=== PATIENT | female | born 1945 | race Caucasian/White ===

== ENCOUNTER → 2017-11-01 | Outpatient (REF) | payer MEDICARE, OTHER ==
[2017-11-01 14:15] LABS: FOLATE > 24.0 NG/ML; VITAMIN B12 LEVEL 708 PG/ML
[2017-11-05 00:08] LABS: VITAMIN B1 LEVEL WHOLE BLOOD 179.4 nmol/L (66.5-200.0); VITAMIN B6,PYRIDOXAL PHOSPHATE 13.8 ug/L (2.0-32.8); VITAMIN E(ALPHA TOCOPHEROL) 11.4 mg/L (9.0-29.0); VITAMIN E(GAMMA TOCOPHEROL) 0.4 mg/L (0.5-4.9)
== END ==
LOC: M LABNEURO 09:12
DX: E03.9 Hypothyroidism, unspecified (principal); E53.8 Deficiency of other specified B group vitamins
CPT/HCPCS: 82746

== ENCOUNTER → 2018-01-02 | Outpatient (REF) | payer MEDICARE, OTHER ==
[2018-01-02 12:52] LABS: BASO % 0.2 % (0.0-1.0); EOS # 0.1 10^3/uL (0.0-0.50); EOS % 0.5 % (0.0-3.0); HEMATOCRIT 36.3 % (36.0-47.0); HEMOGLOBIN 11.9 g/dl (12.0-15.5); IMMATURE GRANULOCYTE % 0.4 % (0-3.0); LYMPH # 1.1 10^3/uL (1.5-4.5); LYMPH % 11.3 % (24.0-44.0); MEAN CORPUSCULAR HEMOGLOBIN 28.3 pg (27.0-33.0); MEAN CORPUSCULAR HGB CONC 32.8 g/dl (32.0-36.5); MEAN CORPUSCULAR VOLUME 86.2 fl (80.0-96.0); MONO % 10.8 % (0.0-5.0); NEUTROPHILS # 7.4 10^3/uL (1.8-7.7); NEUTROPHILS % 76.8 % (36.0-66.0); PLATELET COUNT, AUTOMATED 402 10^3/uL (150-450); RED BLOOD COUNT 4.21 10^6/uL (4.00-5.40); WHITE BLOOD COUNT 9.6 10^3/uL (4.0-10.0)
[2018-01-02 13:28] LABS: ANION GAP 9 MEQ/L (8-16); BLOOD UREA NITROGEN 7 MG/DL (7-18); CALCIUM LEVEL 8.6 MG/DL (8.8-10.2); CARBON DIOXIDE LEVEL 26 MEQ/L (21-32); CHLORIDE LEVEL 104 MEQ/L (98-107); CREATININE FOR GFR 0.37 MG/DL (0.55-1.30); GLOMERULAR FILTRATION RATE > 60.0 (>39); GLUCOSE, FASTING 85 MG/DL (70-100); POTASSIUM SERUM 3.9 MEQ/L (3.5-5.1); SODIUM LEVEL 139 MEQ/L (136-145)
== END ==
LOC: M LABDRAW1 09:31
DX: F03.90 Unspecified dementia, unspecified severity, without behavioral disturbance, psychotic disturbance, mood disturbance, and anxiety (principal)
CPT/HCPCS: 84443

== ENCOUNTER 2018-12-14 08:08 | Day surgery (SDC) | payer MEDICARE, OTHER ==
[~2018-12-14] VITALS: Ht 165.1 cm; Wt 51.3 kg
[~2018-12-14 08:08] MED LIST: ALEN70TA74 PO; CALC600T5 PO; COQ-100C5 PO; DONE10TA90 PO; FISH1000 PO; MEMA1TAB2 PO; MULTCAP PO; VITAE20CA PO; eye vitamin PO
[2018-12-14] MEDS ORDERED: NS 1,000 ML IV ONE (09:00)
[2018-12-14] MEDS ORDERED: PROPOFOL 200 MG/20 ML VIAL As Ordered ONE (09:05)
[2018-12-14] MEDS ORDERED: LIDOCAINE 2% INJ 100 MG/5 ML SDV (FOR ANES.) As Ordered ONE (09:05)
--- NOTE | 2018-12-14 10:37 | ROOR ---
Patient Name: Claudia Reeves Procedure Date: 12/14/2018 10:12 AM Date of : 1945 Age: 73 Room: [facility] Gender: Female Note Status: Finalized Procedure: Colonoscopy Indications: Screening for colorectal malignant neoplasm Providers: Devaughn BOOTH MD Referring MD: Radha Mcclain MD Requesting Provider: Medicines: Monitored Anesthesia Care Complications: No immediate complications. Procedure: Pre-Anesthesia Assessment: - The heart rate, respiratory rate, oxygen saturations, blood pressure, adequacy of pulmonary ventilation, and response to care were monitored throughout the procedure. The Colonoscope was introduced through the anus and advanced to the terminal ileum, with identification of the appendiceal orifice and IC valve. The colonoscopy was performed without difficulty. The patient tolerated the procedure well. The quality of the bowel preparation was good. Findings: The perianal and digital rectal examinations were normal. The mucosa vascular pattern in the entire colon was diffusely decreased. This was biopsied with a cold forceps for diagnostic purposes. Two sessile polyps were found in the sigmoid colon. The polyps were diminutive in size. These polyps were removed with a cold snare. Resection and retrieval were complete. Multiple medium-mouthed diverticula were found in the sigmoid colon. The exam was otherwise without abnormality on direct and retroflexion views. Impression: - Two diminutive polyps in the sigmoid colon, removed with a cold snare. Resected and retrieved. - Mild diverticulosis in the sigmoid colon. - Decreased mucosa vascular pattern in the entire colon. Biopsied. - The examination was otherwise normal on direct and retroflexion views. Recommendation: - Telephone endoscopist for pathology results in 2 weeks. - If the pathology report reveals adenomatous tissue, then repeat the colonoscopy for surveillance in 5 years. Devaughn Booth MD Devaughn BOOTH MD 12/14/2018 10:37:25 AM Electronically signed by Devaughn BOOTH MD Number of Addenda: 0 Note Initiated On: 12/14/2018 10:12 AM Estimated Blood Loss: Estimated blood loss: none.
[2018-12-14 11:15] VITALS: BP 122/65
== END 2018-12-14 11:35 | disposition home or self-care (01) ==
LOC: M OPP 08:08
PROVIDERS: ATTEND Internal Medicine Gastroenterology
DX: Z12.11 Encounter for screening for malignant neoplasm of colon (principal); K63.5 Polyp of colon; K57.30 Diverticulosis of large intestine without perforation or abscess without bleeding

== ENCOUNTER → 2020-07-01 | Outpatient (CLI) | payer MEDICARE, OTHER ==
[~2020-07-01] MED LIST changes: -ALEN70TA74 PO; +ALEN70TA82 PO; -CALC600T5 PO; +CALC600T61 PO; +MEMA10TA19 PO; -MEMA1TAB2 PO
--- NOTE | 2020-07-01 15:21 | REPMRS ---
Patient History The patient states she has not had a clinical breast exam in over a year. Patient is postmenopausal. Family history of endometrial cancer at age 50 or over in sister. Digital Woman Screen Mammo: July 01, 2020 - Exam #: [id number] Bilateral CC and MLO view(s) were taken. Technologist: Anneliese Parish, Technologist Prior study comparison: May 17, 2019, bilateral digital mammo screening bilat, performed at [facility]. January 24, 2018, bilateral digital mammo screening bilat, performed at [facility]. September 24, 2015, bilateral digital mammo screening bilat, performed at [facility]. FINDINGS: The breast tissue is extremely dense which could obscure a lesion on mammography. The [facility] volumetric breast density category is: D. There is a needle biopsy marker clip in the right breast. There is an extremely dense symmetrical pattern of residual fibroglandular tissue. There has been no change in the appearance of the mammogram from the previous studies. There is no interval development of dominant mass, archetectural distortion, or grouped microcalcifications suggestive of malignancy. Assessment: BI-RADS/ACR category 2 mammogram. Benign Findings. Recommendation Routine screening mammogram of both breasts in 1 year (for women over age 40). This patient's [facility] Lifetime Breast Cancer RIsk is estimated at 3.8 %. This mammogram was interpreted with the aid of an FDA-approved computer-aided dectection system. Electronically Signed By: Tye Sanchez MD 07/01/20 [id number]
--- NOTE | 2020-07-01 15:31 | DEXAMM ---
INDICATION: M89.9 DISORDER OF BONE. COMPARISON: Comparison studies January 26, 2008 and January 24, 2018.. TECHNIQUE: Bone density was measured using dual-energy x-ray absorptionmetry (DEXA). FINDINGS: AP SPINE L1-L4 BMD 0.911 g/cm2 Young Adult T-Score -2.3 Age Matched Z-Score -0.5. LT FEMUR, TOTAL BMD 0.636 g/cm2 Young Adult T-Score -3.0 Age Matched Z-Score -1.2. LT NECK BMD 0.669 g/cm2 Young Adult T-Score -2.7 Age Matched Z-Score -0.7. RT FEMUR, TOTAL BMD 0.700 g/cm2 Young Adult T-Score -2.4 Age Matched Z-Score -0.7. RT NECK BMD 0.705 g/cm2 Young Adult T-Score -2.4 Age Matched Z-Score -0.5. IMPRESSION: There is low bone density of the spine. There is osteoporosis of the left hip. There is low bone density of the right hip. The density of the spine has decreased 6.1% since the initial exam on January 26, 2008. The density of the spine decreased 4.5% since most recent exam on January 24, 2018. The density of the left hip has decreased 24.6% since initial exam on January 26, 2008. The density of the left hip has decreased 8.5% since most recent exam on the January 24, 2018. The density of the right hip has decreased 17.1% since the initial exam on January 26, 2008. The density of the right hip has decreased 6.2% since the most recent exam on January 24, 2018. FOLLOW-UP: Recommendation for the next bone density exam: 2 years. <Electronically signed by Tye Sanchez > 07/01/20 [id number]
== END ==
LOC: M WHC 11:22
PROVIDERS: ATTEND Family Medicine
DX: Z12.31 Encounter for screening mammogram for malignant neoplasm of breast (principal); M89.9 Disorder of bone, unspecified

== ENCOUNTER → 2020-10-15 | Outpatient (CLI) | payer MEDICARE, OTHER ==
--- NOTE | 2020-10-15 10:22 | REP ---
INDICATION: COUGH COMPARISON: None. TECHNIQUE: PA and lateral. FINDINGS: There is a moderate right middle lobe infiltrate. A subtle vague focal area of opacity in the right upper lung zone midclavicular line is also suggested. Underlying chronic emphysematous changes are noted. No effusion. No pneumothorax. Cardiac silhouette is normal. IMPRESSION: Moderate right middle lobe atelectasis/pneumonia. Subtle vague round 1.5 cm opacity in the right upper lung zone. Findings require follow-up to resolution and if necessary short-term contrast-enhanced chest CT follow-up. <Electronically signed by Corbin Aguilar > 10/15/20 [id number]
== END ==
LOC: M PLAIMG 08:32
DX: R05 Cough (principal); J18.9 Pneumonia, unspecified organism; J98.11 Atelectasis; R91.8 Other nonspecific abnormal finding of lung field

== ENCOUNTER → 2020-11-17 | Outpatient (REF) | payer MEDICARE, OTHER | LOC: M LAB REF 18:50 | PROVIDERS: ATTEND Physician Assistant | DX: C44.311 Basal cell carcinoma of skin of nose (principal) ==

== ENCOUNTER → 2020-11-27 | Outpatient (CLI) | payer MEDICARE, OTHER ==
--- NOTE | 2020-11-27 13:05 | REP ---
INDICATION: PNEUMONIA. COMPARISON: 10/15/2020 TECHNIQUE: PA and lateral FINDINGS: The right lung patchy opacities seen previously have nearly completely resolved with a minimal residual. There are no new patchy opacities or pleural effusions. The cardiomediastinal silhouette is stable. The heart is not enlarged. There is no change in the osseous structures. IMPRESSION: Significant improvement as described above. <Electronically signed by Marquis Narvaez > 11/27/20 [id number]
== END ==
LOC: M PLAIMG 09:41
PROVIDERS: ATTEND Family Medicine
DX: J18.9 Pneumonia, unspecified organism (principal)